=== PATIENT | male | born 1990 | race Caucasian/White ===

== ENCOUNTER 2019-04-11 05:43 | Emergency (ER) | payer OTHER ==
[~2019-04-11] VITALS: Ht 170.2 cm; Wt 65.8 kg
[~2019-04-11 05:43] MED LIST: AMIT10 PO; AMIT50 PO; AMOX500; Amitriptyline H25 MG PO; BUSP10 PO; BUSP5 PO; Bactrim Ds Tab1 EACH PO; Bupropion Xl150 MG PO; ESCI20 PO; GABA600 PO; KETO10 PO; MELO7.5; NAPR500 PO; OXYACE5T PO; PREG150 PO; PREG25 PO; RXOXYACE PO; SULTRIDS PO; Tizanidine HCl2 MG PO; Voltaren100 GM TOP
== END 2019-04-11 07:29 | disposition home or self-care (01) ==
LOC: ER 05:43
DX: S61.210A Laceration without foreign body of right index finger without damage to nail, initial encounter (principal); F90.9 Attention-deficit hyperactivity disorder, unspecified type; F41.9 Anxiety disorder, unspecified; F17.200 Nicotine dependence, unspecified, uncomplicated; Z79.899 Other long term (current) drug therapy; W26.8XXA Contact with other sharp object(s), not elsewhere classified, initial encounter; Y99.0 Civilian activity done for income or pay
CPT/HCPCS: 12002; 90471; 90714; 99282-25

== ENCOUNTER 2021-01-07 05:56 | Emergency (ER) | payer OTHER ==
[~2021-01-07] VITALS: Ht 170.2 cm; Wt 68.0 kg
[2021-01-07] MEDS ORDERED: NAPROXEN500 MG PO (06:25)
[2021-01-07] MEDS ORDERED: TOPI50 PO (06:26)
[2021-01-07] MEDS ORDERED: Bactrim Ds Tab1 EACH PO (07:29)
== END 2021-01-07 08:11 | disposition home or self-care (01) ==
LOC: ER 05:56
DX: L02.415 Cutaneous abscess of right lower limb (principal); F17.200 Nicotine dependence, unspecified, uncomplicated
CPT/HCPCS: 10060; 99283-25; A9270

== ENCOUNTER → 2022-07-06 | Outpatient (CLI) | payer OTHER ==
[~2022-07-06] MED LIST changes: +NAPROXEN500 MG PO; +TOPI50 PO
== END | disposition home or self-care (01) ==
LOC: LAB 14:00 → LAB SHORT 14:00
DX: H60.502 Unspecified acute noninfective otitis externa, left ear (principal)
CPT/HCPCS: 87070; 87077; 87147; 87186; 87205

== ENCOUNTER 2022-07-14 10:31 | Emergency (ER) | payer OTHER ==
[~2022-07-14] VITALS: Ht 172.7 cm; Wt 72.6 kg
== END 2022-07-14 13:07 | disposition home or self-care (01) ==
LOC: ER 10:31
DX: S01.80XA Unspecified open wound of other part of head, initial encounter (principal); S41.102A Unspecified open wound of left upper arm, initial encounter; S41.101A Unspecified open wound of right upper arm, initial encounter; S31.000A Unspecified open wound of lower back and pelvis without penetration into retroperitoneum, initial encounter; F15.90 Other stimulant use, unspecified, uncomplicated; F12.90 Cannabis use, unspecified, uncomplicated; X58.XXXA Exposure to other specified factors, initial encounter; F17.200 Nicotine dependence, unspecified, uncomplicated
CPT/HCPCS: 99284

== ENCOUNTER 2022-07-14 17:35 | Emergency (ER) | payer OTHER ==
[~2022-07-14] VITALS: Ht 172.7 cm; Wt 65.8 kg
== END 2022-07-14 17:45 | disposition home or self-care (01) ==
LOC: ER 17:35
DX: F15.10 Other stimulant abuse, uncomplicated (principal); F22 Delusional disorders; Z79.899 Other long term (current) drug therapy; F17.200 Nicotine dependence, unspecified, uncomplicated
CPT/HCPCS: 99281

== ENCOUNTER 2023-05-24 16:40 | Observation (INO) | payer OTHER ==
[~2023-05-24] VITALS: Ht 167.6 cm; Wt 59.0 kg
[2023-05-24 17:13] LABS: BASOPHILS ABSOLUTE AUTO 0.05 K/mm3 (0.00-0.23); BASOPHILS PERCENT AUTO 0 % (0-2); EOSINOPHILS ABSOLUTE AUTO 0.01 K/mm3 (0.00-0.68); EOSINOPHILS PERCENT AUTO 0 % (0-6); Hematocrit 44.8 % (37.0-53.0); Hemoglobin 16.1 g/dL (13.5-17.5); IMMATURE GRAN ABSOLUTE AUTO 0.03 K/mm3 (0.00-0.10); IMMATURE GRAN PERCENT AUTO 0 % (0-1); LYMPHOCYTES ABSOLUTE AUTO 1.31 K/mm3 (0.84-5.20); LYMPHOCYTES PERCENT AUTO 11 % (21-46); MONOCYTES PERCENT AUTO 6 % (4-13); Mean Corpuscular HGB 30.3 pg (26.0-34.0); Mean Corpuscular HGB Conc 35.9 g/dL (31.5-36.5); Mean Corpuscular Volume 84 fL (80-100); Mean Platelet Volume 9.4 fL (9.1-12.4); NEUTROPHILS ABSOLUTE AUTO 9.79 K/mm3 (1.96-9.15); NEUTROPHILS PERCENT AUTO 82 % (41-73); Platelet Count 417 K/mm3 (150-400); RDW Coefficient Variation 11.9 % (11.7-14.2); RDW Standard Deviation 35.9 fL (35.1-46.3); Red Blood Cell Count 5.31 M/mm3 (4.30-5.90); White Blood Cell Count 11.89 K/mm3 (4.00-11.30)
[2023-05-24 17:43] LABS: Ethanol (Alcohol), Blood, Med <3 mg/dL; Salicylate <1.7 mg/dL (2.8-20.0)
[2023-05-24 17:50] LABS: Alanine Aminotransfer (ALT/SGP 35 U/L (12-78); Albumin, Blood 4.5 g/dL (3.4-5.0); Albumin/Globulin Ratio 1.4 (0.8-1.8); Alk Phos 63 U/L (50-136); Anion Gap 9 mmol/L (6-16); Aspartate Aminotrans (AST/SGOT 55 U/L (12-37); Bilirubin, Total 1.1 mg/dL (0.1-1.0); Blood Urea Nitrogen 15 mg/dL (8-24); CO2, Blood 24 mmol/L (21-32); Calcium, Blood 9.6 mg/dL (8.5-10.1); Chloride, Blood 106 mmol/L (98-108); Creatinine, Blood 1.25 mg/dL (0.60-1.20); Globulin, Blood 3.3 g/dL (2.2-4.0); Glomerular Filtration Rate 79 (60-); Glucose, Blood 166 mg/dL (70-99); Potassium, Blood 5.1 mmol/L (3.5-5.5); Sodium, Blood 139 mmol/L (136-145); Total Protein, Blood 7.8 g/dL (6.4-8.2)
[2023-05-24 17:51] LABS: Acetaminophen, Random <2.0 ug/mL (10.0-30.0)
[2023-05-24 21:18] LABS: Influenza A, PCR NEGATIVE (NEGATIVE); Influenza B, PCR NEGATIVE (NEGATIVE); Resp Syncytial Virus, PCR NEGATIVE (NEGATIVE); SARS-Cov-2 (COVID-19) PCR, MMC NEGATIVE (NEGATIVE)
[2023-05-24 21:30] VITALS: BP 125/65
[2023-05-25 01:59] LABS: U Amphetamine Screen DETECTED; U Barbituate Screen Not Detected; U Benzodiazapine Screen Not Detected; U Buprenorphine Screen Not Detected; U Cannabinoids Screen Not Detected; U Cocaine Screen Not Detected; U Methadone Screen Not Detected; U Methamphetamine Screen DETECTED; U Opiates Screen Not Detected; U Oxycodone Screen Not Detected; U Phencyclidine Screen Not Detected; U Propoxyphene Screen Not Detected
[2023-05-25] MEDS ORDERED: BUSP10 PO (12:41)
[2023-05-25] MEDS ORDERED: ESCI20 PO (12:41)
== END 2023-05-25 22:43 | disposition home or self-care (01) ==
LOC: ER 16:40 → EOR 16:41
PROVIDERS: ADMIT Student in an Organized Health Care Education/Training Program
DX: F15.229 Other stimulant dependence with intoxication, unspecified (principal); R45.1 Restlessness and agitation; F17.210 Nicotine dependence, cigarettes, uncomplicated; Z79.899 Other long term (current) drug therapy; Z20.822 Contact with and (suspected) exposure to COVID-19
CPT/HCPCS: 0241U; 71045; 74177; 80053; 83690; 85025; 93005; 93010; 96361; 96374; 99285-25; G0378; G0480; J1790; J7030; Q9967

== ENCOUNTER 2023-08-30 07:11 | Emergency (ER) | payer OTHER ==
[~2023-08-30] VITALS: Ht 170.2 cm; Wt 70.3 kg
[2023-08-30 07:23] VITALS: BP 152/65
== END 2023-08-30 07:48 | disposition home or self-care (01) ==
LOC: ER 07:11
DX: S60.445A External constriction of left ring finger, initial encounter (principal); F17.200 Nicotine dependence, unspecified, uncomplicated; F90.9 Attention-deficit hyperactivity disorder, unspecified type; G62.9 Polyneuropathy, unspecified; Z79.899 Other long term (current) drug therapy; W49.04XA Ring or other jewelry causing external constriction, initial encounter
CPT/HCPCS: 99282

== ENCOUNTER 2023-11-06 06:38 | Emergency (ER) | payer OTHER ==
[~2023-11-06] VITALS: Ht 167.6 cm; Wt 68.0 kg
[2023-11-06] MEDS ORDERED: Ondansetron 4 MG SoluTab SL ONE (07:05)
[2023-11-06 08:02] LABS: Hematocrit 43.5 % (37.0-53.0); Hemoglobin 15.4 g/dL (13.5-17.5); Mean Corpuscular HGB 31.3 pg (26.0-34.0); Mean Corpuscular HGB Conc 35.4 g/dL (31.5-36.5); Mean Corpuscular Volume 88 fL (80-100); Mean Platelet Volume 9.1 fL (9.1-12.4); Platelet Count 311 K/mm3 (150-400); RDW Coefficient Variation 11.9 % (11.7-14.2); RDW Standard Deviation 38.6 fL (35.1-46.3); Red Blood Cell Count 4.92 M/mm3 (4.30-5.90); White Blood Cell Count 15.01 K/mm3 (4.00-11.30)
[2023-11-06 08:36] LABS: BASOPHILS PERCENT MAN 0 % (0-2); EOSINOPHILS PERCENT MAN 2 % (0-6); LYMPHOCYTES % ATYPICAL MANUAL 2 % (0-0); LYMPHOCYTES PERCENT MAN 8 % (21-46); MONOCYTES ABSOLUTE MAN 0.45 K/mm3 (0.16-1.47); MONOCYTES PERCENT MAN 3 % (4-13); NEUTROPHILS ABSOLUTE MAN 12.75 K/mm3 (1.96-9.15); SEG NEUTROPHILS PERCENT MAN 85 % (41-73); TOTAL CELLS COUNTED 100
[2023-11-06 08:59] LABS: Alanine Aminotransfer (ALT/SGP 25 U/L (12-78); Albumin, Blood 4.3 g/dL (3.4-5.0); Albumin/Globulin Ratio 1.5 (0.8-1.8); Alk Phos 75 U/L (50-136); Anion Gap 10 mmol/L (3-11); Aspartate Aminotrans (AST/SGOT 29 U/L (12-37); Bilirubin, Total 1.8 mg/dL (0.1-1.0); Blood Urea Nitrogen 17 mg/dL (8-24); CO2, Blood 26 mmol/L (21-32); Calcium, Blood 8.9 mg/dL (8.5-10.1); Chloride, Blood 107 mmol/L (98-108); Creatinine, Blood 0.66 mg/dL (0.60-1.20); Ethanol (Alcohol), Blood, Med <3 mg/dL; Globulin, Blood 2.8 g/dL (2.2-4.0); Glomerular Filtration Rate 129 (60-); Glucose, Blood 118 mg/dL (70-99); Potassium, Blood 3.4 mmol/L (3.5-5.5); Sodium, Blood 140 mmol/L (136-145); Total Protein, Blood 7.1 g/dL (6.4-8.2)
[2023-11-06 12:41] VITALS: BP 122/81
== END 2023-11-06 12:42 | disposition home or self-care (01) ==
LOC: ER 06:38
PROVIDERS: Emergency Medicine
DX: S51.011A Laceration without foreign body of right elbow, initial encounter (principal); S60.222A Contusion of left hand, initial encounter; K52.9 Noninfective gastroenteritis and colitis, unspecified; F17.200 Nicotine dependence, unspecified, uncomplicated; G62.9 Polyneuropathy, unspecified; F90.9 Attention-deficit hyperactivity disorder, unspecified type; W19.XXXA Unspecified fall, initial encounter
CPT/HCPCS: 36415; 73080; 73130; 80053; 85025; 99284-25; A9270

== ENCOUNTER → 2024-05-20 | Outpatient (CLI) | payer OTHER ==
[2024-05-20 20:03] LABS: Chlamydia Trachomatis Urine NOT DETECTED (NOT DETECT); Neisseria Gonorrhoea Urine NOT DETECTED (NOT DETECT)
== END | disposition home or self-care (01) ==
LOC: LAB SHORT 16:04 → LAB 16:04
PROVIDERS: Family Medicine
DX: L03.818 Cellulitis of other sites (principal); R30.0 Dysuria
CPT/HCPCS: 87070; 87077; 87086; 87186; 87205; 87491; 87591

== ENCOUNTER 2024-06-28 18:17 | Emergency (ER) | payer OTHER ==
[~2024-06-28] VITALS: Ht 170.2 cm; Wt 72.6 kg
[2024-06-28 19:58] LABS: Hematocrit 43.7 % (37.0-53.0); Hemoglobin 15.2 g/dL (13.5-17.5); Mean Corpuscular HGB 29.9 pg (26.0-34.0); Mean Corpuscular HGB Conc 34.8 g/dL (31.5-36.5); Mean Corpuscular Volume 86 fL (80-100); Mean Platelet Volume 8.4 fL (9.1-12.4); Platelet Count 329 K/mm3 (150-400); RDW Coefficient Variation 12.2 % (11.7-14.2); RDW Standard Deviation 38.3 fL (35.1-46.3); Red Blood Cell Count 5.08 M/mm3 (4.30-5.90); White Blood Cell Count 28.51 K/mm3 (4.00-11.30)
[2024-06-28 20:17] LABS: BAND PERCENT MAN 4 % (0-8); BASOPHILS PERCENT MAN 0 % (0-2); EOSINOPHILS PERCENT MAN 0 % (0-6); LYMPHOCYTES ABSOLUTE MAN 1.99 K/mm3 (0.84-5.20); LYMPHOCYTES PERCENT MAN 7 % (21-46); MONOCYTES ABSOLUTE MAN 1.14 K/mm3 (0.16-1.47); MONOCYTES PERCENT MAN 4 % (4-13); MYELOCYTE ABSOLUTE MAN 0.57 K/mm3 (0.00-0.00); MYELOCYTE PERCENT MAN 2 % (0-0); SEG NEUTROPHILS PERCENT MAN 83 % (41-73); TOTAL CELLS COUNTED 100
[2024-06-28 20:19] LABS: Alanine Aminotransfer (ALT/SGP 129 U/L (12-78); Albumin, Blood 3.9 g/dL (3.4-5.0); Albumin/Globulin Ratio 1.3 (0.8-1.8); Alk Phos 74 U/L (50-136); Anion Gap 9 mmol/L (3-11); Aspartate Aminotrans (AST/SGOT 108 U/L (12-37); Bilirubin, Total 0.6 mg/dL (0.1-1.0); Blood Urea Nitrogen 23 mg/dL (8-24); Bun/Creatinine Ratio 22.8 (12.0-20.0); CO2, Blood 28 mmol/L (21-32); Calcium, Blood 9.1 mg/dL (8.5-10.1); Chloride, Blood 110 mmol/L (98-108); Creatinine, Blood 1.01 mg/dL (0.60-1.20); Ethanol (Alcohol), Blood, Med <3 mg/dL; Glomerular Filtration Rate 101 (60-); Glucose, Blood 136 mg/dL (70-99); Potassium, Blood 3.9 mmol/L (3.5-5.5); Sodium, Blood 143 mmol/L (136-145); Total Protein, Blood 6.9 g/dL (6.4-8.2)
[2024-06-28] MEDS ORDERED: Ondansetron HCl 2 MG / ML 2ML Vial IV ONE ×2 (20:30→23:35)
[2024-06-28] MEDS ORDERED: Morphine Sulfate 4 MG/1 ML Injection IV ONE (20:30)
[2024-06-28] MEDS ORDERED: NS 1,000 ML IV SCH (21:00)
[2024-06-28] MEDS ORDERED: HYDROmorphone HCl/Pf 1MG SYR IV ONE (23:35)
[2024-06-29 00:08] VITALS: BP 124/81
[2024-06-29] MEDS ORDERED: Percocet 5-3251 EACH PO (00:54)
[2024-06-29] MEDS ORDERED: RX Prepack 6 Tabs Oxycodone 5mg UD ONE (00:55)
== END 2024-06-29 01:09 | disposition home or self-care (01) ==
LOC: ER 18:17
PROVIDERS: Emergency Medicine
DX: S32.019A Unspecified fracture of first lumbar vertebra, initial encounter for closed fracture (principal); S32.029A Unspecified fracture of second lumbar vertebra, initial encounter for closed fracture; S32.039A Unspecified fracture of third lumbar vertebra, initial encounter for closed fracture; S32.049A Unspecified fracture of fourth lumbar vertebra, initial encounter for closed fracture; S32.591A Other specified fracture of right pubis, initial encounter for closed fracture; S32.402A Unspecified fracture of left acetabulum, initial encounter for closed fracture; S32.401A Unspecified fracture of right acetabulum, initial encounter for closed fracture; F17.200 Nicotine dependence, unspecified, uncomplicated; V49.40XA Driver injured in collision with unspecified motor vehicles in traffic accident, initial encounter; Z79.899 Other long term (current) drug therapy
CPT/HCPCS: 70450; 71260; 72125; 74177; 80053; 80320; 83690; 85025; 96361; 96374; 96375; 96376; 99284-25; A9270; J1171; J2270; J2405; J7030; Q9967

== ENCOUNTER 2024-12-03 05:48 | Emergency (ER) | payer OTHER ==
[~2024-12-03] VITALS: Ht 172.7 cm; Wt 59.0 kg
[~2024-12-03 05:48] MED LIST changes: +Percocet 5-3251 EACH PO
[2024-12-03] MEDS ORDERED: Magnesium Citrate 300 ML BTL PO ONE (06:50)
[2024-12-03 07:00] VITALS: BP 107/68
== END 2024-12-03 07:10 | disposition home or self-care (01) ==
LOC: ER 05:48
DX: T18.4XXA Foreign body in colon, initial encounter (principal); W44.D9XA Other magnetic metal objects entering into or through a natural orifice, initial encounter; F17.200 Nicotine dependence, unspecified, uncomplicated; Z79.899 Other long term (current) drug therapy
CPT/HCPCS: 74018; 99283-25; A9270